=== PATIENT | male | born 1955 | race Caucasian/White ===

== ENCOUNTER 2017-07-06 15:24 | Emergency (ER) | payer OTHER ==
[2012-07-01 09:05] VITALS: BMI 35.3
== END 2017-07-06 17:15 | disposition home or self-care (01) ==
LOC: D.ER 15:24
DX: M54.30 Sciatica, unspecified side (principal); M62.838 Other muscle spasm; S39.012A Strain of muscle, fascia and tendon of lower back, initial encounter; X58.XXXA Exposure to other specified factors, initial encounter; Y93.89 Activity, other specified; Y92.89 Other specified places as the place of occurrence of the external cause; J44.9 Chronic obstructive pulmonary disease, unspecified; I10 Essential (primary) hypertension